=== PATIENT | male | born 1975 | race Two or more races ===

== ENCOUNTER 2021-06-14 17:35 | Outpatient (CLI) | payer OTHER | END 2021-06-14 20:20 | disposition home or self-care (01) | LOC: LAB 17:35 | DX: R53.81 Other malaise (principal); R05 Cough; Z11.52 Encounter for screening for COVID-19; J02.8 Acute pharyngitis due to other specified organisms ==

== ENCOUNTER 2021-10-16 08:14 | Outpatient (CLI) | payer OTHER | END 2021-10-16 13:50 | disposition home or self-care (01) | LOC: LAB 08:14 | DX: Z20.822 Contact with and (suspected) exposure to COVID-19 (principal) ==